=== PATIENT | male | born 2005 | race Asian ===

== ENCOUNTER 2023-10-23 15:37 | Outpatient (CLI) | payer BC, SELFPAY ==
--- NOTE | 2023-10-23 16:00 | CRLHL7_ITS ---
For Patients: As a result of the Century Cures Act, medical imaging exams and procedure reports are released immediately into your electronic medical record. You may view this report before your referring provider. If you have questions, please contact your health care provider. Indication: Two palpable abnormalities located inferior to the left ear. Technique: Ultrasound examination of the areas of palpable abnormality is performed with a high-resolution linear transducer. Comparison: None available Findings: The areas of palpable abnormality are seen to be prominent lymph nodes that do not meet size criteria to be described as lymphadenopathy. The largest measures 1.6 x 0.8 x 1.3 centimeters with a smaller adjacent lymph node measuring 0.8 x 0.7 x 0.8 centimeters. These have increased color Doppler flow within the with a pattern consistent with normal lars hilar architecture. The findings are that of reactive lymph nodes, not large enough to be described as lymphadenopathy. The surrounding subcutaneous fat and deeper muscular structures are normal in appearance. Impression: 1. Palpable abnormalities in the neck correspond to 2 mildly enlarged lymph nodes with increased color Doppler flow, consistent with reactive lymph nodes. These are not large enough to be described as lymphadenopathy. 2. Recommend clinical follow-up. Dictated by Gavino Alatorre MD @ 10/23/2023 11:03:12 PM (Electronically Signed)
== END 2023-10-23 15:38 | disposition home or self-care (01) ==
PROVIDERS: Visit Provider Nurse Practitioner Family
DX: H92.09 Otalgia, unspecified ear (principal); R59.0 Localized enlarged lymph nodes
CPT/HCPCS: 76536